=== PATIENT | female | born 1975 | race Caucasian/White ===

== ENCOUNTER 2018-12-27 14:47 | Emergency (ER) | payer SELFPAY ==
[2018-12-27] MEDS ORDERED: Lidocaine 1% w/Epinephrine 1:100K 20 ML VIAL ONE (17:14)
--- NOTE | 2018-12-27 18:31 | ULT ---
RIGHT BREAST ULTRASOUND: 12/27/18 HISTORY: Evaluation for breast abscess. Real time imaging of the right breast was performed. This shows some edema change within the breast t issue in approximately 3 o'clock position 15 cm from the nipple is an oblong shaped fluid density col lection which measures at least 4.5 cm in length and 10 mm in diameter. This is directly posterior to an area of altered echogenicity of the breast tissue. This is probably related to an adjacent indura brenda breast tissue rather than a thickened portion of this fluid collection although it could represen t thicker material within the collection itself. IMPRESSION: Fluid density collection within the breast as discussed above. Highly suspicious for abscess given hi story. POS: [facility]
== END 2018-12-27 17:46 | disposition home or self-care (01) ==
LOC: ERS 14:47
DX: N61.1 Abscess of the breast and nipple (principal); F17.210 Nicotine dependence, cigarettes, uncomplicated; Z79.1 Long term (current) use of non-steroidal anti-inflammatories (NSAID)
CPT/HCPCS: 10061; J2001

== ENCOUNTER 2019-01-04 19:54 | Emergency (ER) | payer SELFPAY ==
[2019-01-04] MEDS ORDERED: HYDROcodone/Acetaminophen 5/325 mg Tablet ONE (21:58)
--- NOTE | 2019-01-04 23:47 | ULT ---
ULTRASOUND RIGHT BREAST 01/04/19 HISTORY: Abscess. COMPARISON: Breast ultrasound from 12/27/18. FINDINGS: There is a complex collection in the right breast 3 o'clock 15 cm from the nipple measuring greater t echavarria 7 to 8 cm in size. Extensive skin thickening. This is increased from the comparison examination. IMPRESSION: Complex collection is increased in size from the comparison examination. Surgical consultation advise d. POS: [facility]
[2019-01-05 00:32] LABS: #Basophils 0.1 thou/uL (0.0-0.2); #Eosinphils 0.4 thou/uL (0.0-0.7); #Lymphocytes 3.5 thou/uL (1.20-3.40); #Monocytes 0.9 thou/uL (0.11-0.59); #Neutrophils 11.6 thou/uL (1.40-6.50); %Basophils 0.7 % (0.0-1.0); %Eosinophils 2.7 % (0.0-10.0); %Monocytes 5.6 % (0.0-10.0); %Neutrophils 70.1 % (42.0-75.0); Hemoglobin 13.5 g/dL (12.0-16.0); Mean Corpuscular HGB CONC 32.9 g/dL (32.0-36.0); Mean Corpuscular Hemoglobin 31.1 pg (27.0-31.0); Mean Corpuscular Volume 94.5 fL (78.0-98.0); Mean Platelet Volume 7.1 fL (7.4-10.4); Platelet Count 343 thou/uL (130-400); RBC Distribution Width 11.8 % (11.5-14.5); Red Blood Cell (RBC) Count 4.35 mill/uL (4.20-5.40); White Blood Cell (WBC) Count 16.5 thou/uL (4.8-10.8)
[2019-01-05 00:56] LABS: ALT (SGPT) 16 U/L (8-55); AST (SGOT) 12 U/L (5-34); Albumin 4.1 g/dL (3.5-5.0); Alkaline Phosphatase 84 U/L (40-150); Anion Gap 16 mmol/L (10-20); BUN (Urea Nitrogen) 11 mg/dL (7.0-18.7); Bilirubin, Total 0.5 mg/dL (0.2-1.2); Calc. Creatinine Clearance 0 mL/min (70-130); Calcium 9.3 mg/dL (7.8-10.44); Carbon Dioxide 22 mmol/L (22-29); Chloride 101 mmol/L (98-107); Estimated GFR-MDRD 79; Globulin 3.8 g/dL (2.4-3.5); Glucose 95 mg/dL (70-105); Potassium 3.6 mmol/L (3.5-5.1); Protein, Total 7.9 g/dL (6.0-8.3); Sodium 135 mmol/L (136-145)
== END 2019-01-05 01:50 | disposition home or self-care (01) ==
LOC: ERS 19:54
DX: N61.1 Abscess of the breast and nipple (principal); F17.210 Nicotine dependence, cigarettes, uncomplicated
CPT/HCPCS: 36415; 80053; 83605; 85025; 87040; 94760; 96365; J3370

== ENCOUNTER 2019-09-30 18:43 | Emergency (ER) | payer OTHER, SELFPAY ==
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
--- NOTE | 2019-09-30 20:43 | ULT ---
LEFT LOWER EXTREMITY DOPPLER VENOUS ULTRASOUND PROVIDED CLINICAL HISTORY: Left lower extremity pain TECHNIQUE: Grayscale and color Doppler sonography with spectral analysis was performed of the left common femora l, femoral, popliteal, posterior tibial, greater saphenous and profunda femoral veins. FINDINGS: There is normal compression, flow and augmentation seen within the deep venous structures o f the left lower extremity. IMPRESSION: No sonographic evidence for left lower extremity deep venous thrombosis.
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
[2019-09-30] MEDS ORDERED: HYDROcodone/Acetaminophen 5/325 mg Tablet ONE (22:52)
== END 2019-09-30 23:07 | disposition home or self-care (01) ==
LOC: ERS 18:43
DX: S92.121A Displaced fracture of body of right talus, initial encounter for closed fracture (principal); S82.142A Displaced bicondylar fracture of left tibia, initial encounter for closed fracture; S42.021A Displaced fracture of shaft of right clavicle, initial encounter for closed fracture; S43.101A Unspecified dislocation of right acromioclavicular joint, initial encounter; F17.210 Nicotine dependence, cigarettes, uncomplicated; V49.9XXA Car occupant (driver) (passenger) injured in unspecified traffic accident, initial encounter
CPT/HCPCS: 72170

== ENCOUNTER 2024-02-22 11:14 | Emergency (ER) | payer SELFPAY | END 2024-02-22 13:03 | disposition home or self-care (01) | LOC: ERS 11:14 | DX: K04.7 Periapical abscess without sinus (principal); L03.211 Cellulitis of face; F17.210 Nicotine dependence, cigarettes, uncomplicated | CPT/HCPCS: 99283 ==